=== PATIENT | female | born 1975 | race Caucasian/White ===

== ENCOUNTER → 2018-05-23 | Outpatient (CLI) | payer BC | LOC: FIMAGING 08:03 | PROVIDERS: ATTEND Family Medicine | DX: Z12.31 Encounter for screening mammogram for malignant neoplasm of breast (principal); Z80.3 Family history of malignant neoplasm of breast ==

== ENCOUNTER 2018-06-20 18:15 | Emergency (ER) | payer BC ==
--- NOTE | 2018-06-20 18:35 | EDPHY ---
H & P Time Seen by Provider: 06/20/18 18:26 HPI/ROS: Chief complaint. Chest pain HPI. Patient is a he 42-year-old female presents with chest pressure for about 2 weeks. She and her about 2 weeks ago. She has had increased stress and anxiety and feels tense all over. She has had chest pressure that central without radiation. She feels like she can't get a full deep breath. Otherwise symptoms are not worse with exertion or movement. She has no unusual leg pain or swelling. No cough or fever. No history of cardiac problems. She saw her PCP this morning and had a negative troponin. Apparently she had a somewhat abnormal EKG and her physician called her this afternoon and asked her to come to the emergency department for further evaluation. ROS 10 systems were reviewed and negative with the exception of the elements mentioned in the history of present illness Past Medical/Surgical History: Anxiety No family history of early coronary artery disease Social History: , nonsmoker, no alcohol Smoking Status: Never smoked Physical Exam: General Appearance: Alert somewhat anxious, tearful well-developed female mild distress vital signs are stable Eyes: Pupils equal and round no pallor or injection. ENT, Mouth: Mucous membranes are moist. Respiratory: There are no retractions, lungs are clear to auscultation. Cardiovascular: Regular rate and rhythm. Gastrointestinal: Abdomen is soft and nontender, no masses, bowel sounds normal. Neurological: Awake and alert, sensory and motor exams grossly normal. Skin: Warm and dry, no rashes. Musculoskeletal: Neck is supple nontender. Extremities symmetrical, full range of motion. Psychiatric: Patient is oriented X 3, there is no agitation. Constitutional: Initial Vital Signs Temperature (C) 36.8 C 06/20/18 18:19 Heart Rate 67 06/20/18 18:19 Respiratory Rate 18 06/20/18 18:19 Blood Pressure 128/88 H 06/20/18 18:19 O2 Sat (%) 98 06/20/18 18:19 O2 Delivery Mode Room Air Allergies/Adverse Reactions: latex [Latex] Allergy (Unknown, Verified 10/02/09 20:09) miconazole nitrate [From Monistat 3] Allergy (Unknown, Verified 10/02/09 20:10) Sulfa (Sulfonamide Antibiotics) Allergy (Verified 06/20/18 18:18) Home Medications: Medication Instructions Recorded NK [No Known Home Meds] 06/20/18 Medical Decision Making - Diagnostics EKG Interpretation: EKG interpreted by me shows normal sinus rhythm normal interval and axis. QRS is normal there is no significant ST elevation or depression or arrhythmia. There is borderline prolonged QT interval. Patient's QTC is 490. Heart rate is 68 Imaging Results: Imaging Impressions Chest X-Ray 06/20/18 18:43 Impression: Lung hyperexpansion and mild peribronchial thickening suggestive of mild reactive airways' disease. There is no convincing evidence of a focal infiltrate. Chest x-ray interpreted by me shows no evidence of pneumonia or pneumothorax Procedures: IV normal saline, monitor ED Course/Re-evaluation: I was unable to obtain the old EKG from this morning at [facility]. I consulted discussed case with Dr. Moncada who is area loss prevention manager for Dr. Weiss. Her note said that there was subtle T-wave inversion in aVL and lead V2. These are not present on our current EKG tonight. Dr. Moncada will see the patient in the office tomorrow and she is referred to Cardiology 8:15 p.m. I discuss findings with the patient we discussed laboratory imaging and EKG findings. We discussed treatment plan including criteria for return importance of follow-up further evaluation. She expresses understanding and agreement Differential Diagnosis: Patient has had 2 weeks of continuous chest discomfort with normal workup. EKG is normal there there was a question of an abnormal EKG this morning. Her troponin was normal this morning and this evening. Her D-dimer is normal. There is no evidence for pneumonia or pulmonary embolus or acute coronary syndrome. She has no risk factors for early coronary artery disease. She will be given cardiology referral. Symptoms began when she and her . I think this is more likely stress and anxiety - Data Points Laboratory Results: Laboratory Results 06/20/18 18:34 06/20/18 18:34 06/20/18 06/20/18 06/20/18 18:38 18:34 18:34 WBC RBC Hgb Hct MCV MCH MCHC RDW Plt Count MPV Neut % (Auto) Lymph % (Auto) [place] % (Auto) Eos % (Auto) Baso % (Auto) Nucleat RBC Rel Count Absolute Neuts (auto) Absolute Lymphs (auto) Absolute Monos (auto) Absolute Eos (auto) Absolute Basos (auto) Absolute Nucleated RBC Immature Gran % Immature Gran # D-Dimer Sodium 138 mEq/L mEq/L (135-145) Potassium 4.0 mEq/L mEq/L (3.3-5.0) Chloride 101 mEq/L mEq/L (97-110) Carbon Dioxide 26 mEq/l mEq/l (22-31) Anion Gap 11 mEq/L mEq/L (8-16) BUN 12 mg/dL mg/dL (7-23) Creatinine 0.6 mg/dL mg/dL (0.6-1.0) Estimated GFR > 60 Glucose 104 mg/dL H mg/dL (70-100) Calcium 10.0 mg/dL mg/dL (8.5-10.4) POC Troponin I 0.01 ng/mL ng/mL (0.00-0.08) Beta HCG, Qual NEGATIVE 06/20/18 06/20/18 18:34 18:34 WBC 8.76 10^3/uL 10^3/uL (3.80-9.50) RBC 4.93 10^6/uL 10^6/uL (4.18-5.33) Hgb 15.0 g/dL g/dL (12.6-16.3) Hct 44.3 % % (38.0-47.0) MCV 89.9 fL fL (81.5-99.8) MCH 30.4 pg pg (27.9-34.1) MCHC 33.9 g/dL g/dL (32.4-36.7) RDW 12.4 % % (11.5-15.2) Plt Count 216 10^3/uL 10^3/uL (150-400) MPV 10.1 fL fL (8.7-11.7) Neut % (Auto) 69.7 % % (39.3-74.2) Lymph % (Auto) 21.0 % % (15.0-45.0) [place] % (Auto) 6.2 % % (4.5-13.0) Eos % (Auto) 2.3 % % (0.6-7.6) Baso % (Auto) 0.6 % % (0.3-1.7) Nucleat RBC Rel Count 0.0 % % (0.0-0.2) Absolute Neuts (auto) 6.11 10^3/uL 10^3/uL (1.70-6.50) Absolute Lymphs (auto) 1.84 10^3/uL 10^3/uL (1.00-3.00) Absolute Monos (auto) 0.54 10^3/uL 10^3/uL (0.30-0.80) Absolute Eos (auto) 0.20 10^3/uL 10^3/uL (0.03-0.40) Absolute Basos (auto) 0.05 10^3/uL 10^3/uL (0.02-0.10) Absolute Nucleated RBC 0.00 10^3/uL 10^3/uL (0-0.01) Immature Gran % 0.2 % % (0.0-1.1) Immature Gran # 0.02 10^3/uL 10^3/uL (0.00-0.10) D-Dimer < 0.27 ug/mLFEU ug/mLFEU (0.00-0.50) Sodium Potassium Chloride Carbon Dioxide Anion Gap BUN Creatinine Estimated GFR Glucose Calcium POC Troponin I Beta HCG, Qual Point of Care Test Results: Chemistry 06/20/18 18:38 POC Troponin I 0.01 ng/mL ng/mL (0.00-0.08) Departure - Departure Disposition: Home, Routine, Self-Care Clinical Impression: Chest pain Qualifiers: Chest pain type: unspecified Qualified Code(s): R07.9 - Chest pain, unspecified Condition: Good Instructions: Chest Pain (ED) Additional Instructions: Easy activity. Return for worsening symptoms. Follow-up with Cardiology in the next 1-2 days. Re-evaluation or phone call to Dr. Weiss tomorrow to discuss symptoms. Referrals: Junior Mathews MD [Medical Doctor] - 1-2 days without fail Shaye Weiss MD [Primary Care Provider] - 1 day without fail
--- NOTE | 2018-06-20 18:48 | CPEKG ---
Test Reason : OPEN Blood Pressure : / mmHG Vent. Rate : 068 BPM Atrial Rate : 066 BPM P-R Int : 200 ms QRS Dur : 086 ms QT Int : 460 ms P-R-T Axes : 080 085 035 degrees QTc Int : 490 ms Sinus rhythm Borderline prolonged QT interval Confirmed by Armen Price ([id number]) on 06/20/2018 6:48:27 PM Referred By: Confirmed By:Armen Price
[2018-06-20 19:06] LABS: PLATELET COUNT 216 10^3/uL (150-400)
[2018-06-20 20:41] VITALS: BP 121/76
== END 2018-06-20 20:41 | disposition home or self-care (01) ==
DX: R07.9 Chest pain, unspecified (principal)
CPT/HCPCS: 84484-PO